=== PATIENT | male | born 1985 | race Caucasian/White ===

== ENCOUNTER 2017-03-19 02:07 | Observation (INO) | payer BC ==
[2017-03-18 17:00] LABS: BASOPHIL# 0.1 X10e3 (0-0.3); BASOPHIL% 0.5 % (0-2.5); EOSINOPHIL# 0.2 X10e3 (0-0.7); EOSINOPHIL% 2.4 % (0.0-7.0); HEMATOCRIT 45.4 % (38.0-50.0); HEMOGLOBIN 15.2 gm/dL (13.0-16.0); LYMPHOCYTE# 1.5 X10e3 (1.0-3.5); LYMPHOCYTE% 14.6 % (17.0-45.0); MEAN CELL VOLUME 94.9 FL (83-96); MEAN CORPUSCULAR HEMOGLOBIN 31.7 PG (28-34); MEAN CORPUSCULAR HGB CONC 33.4 g/dL (30-36); MEAN PLATELET VOLUME 7.9 FL (6.5-11.5); MONOCYTE# 0.6 X10e3 (0-1.0); MONOCYTE% 5.6 % (3.0-12.0); NEUTROPHIL# 7.8 X10e3 (1.5-7.1); NEUTROPHIL% 76.9 % (40-75); PLATELET COUNT 314 X10e3 (140-420); RED BLOOD COUNT 4.79 X10e (3.90-5.60); RED CELL DISTRIBUTION WIDTH 14.1 % (11.0-15.5); WHITE BLOOD COUNT 10.1 X10e3 (4.0-10.5)
[2017-03-18 17:12] LABS: DIFF IND NO
[2017-03-18 17:23] LABS: PARTIAL THROMBOPLASTIN TIME 26.6 SECONDS (23.5-31.3); PROTHROMBIN TIME (PATIENT) 10.7 SECONDS (9.6-11.5)
[2017-03-18 17:43] LABS: ALBUMIN SERUM 4.8 g/dL (3.5-5.0); BILIRUBIN, DIRECT 0.1 mg/dL (0.0-0.2); BILIRUBIN,INDIRECT 1.3 mg/dL (0.0-0.9); BILIRUBIN,TOTAL 1.4 mg/dL (0.2-2.0); BUN/CREATININE RATIO 13.33; CALCIUM SERUM 9.7 mg/dL (8.4-10.2); CREATININE SERUM 0.9 mg/dL (0.6-1.4); GLOM FILT RATE Estimated 111.8 mL/min (>60); PROTEIN TOTAL SERUM 7.6 g/dL (6.0-8.3)
[2017-03-18 19:44] LABS: POC - TROPONIN <0.05 ng/mL (<=0.05)
[2017-03-18 22:53] LABS: LIPASE 19 U/L (22-51); SALICYLATE <4.0 mg/dL
[2017-03-18 22:59] LABS: ACETAMINOPHEN <10 ug/mL; ALCOHOL BLOOD <5 mg/dL ([, 0])
[2017-03-18 23:12] LABS: URINE SOURCE CLEAN CATCH
[2017-03-18 23:20] LABS: URINE APPEARANCE CLEAR; URINE BILIRUBIN NEG (NEG); URINE BLOOD NEG (NEG); URINE COLOR YELLOW; URINE GLUCOSE NEG (NEG); URINE KETONE 2+ (NEG); URINE LEUKOCYTE ESTERASE NEG (NEG); URINE NITRATE NEG (NEG); URINE PH 6.5 (5-8); URINE PROTEIN TRACE (NEG); URINE SPECIFIC GRAVITY 1.026 (1.003-1.035)
[2017-03-18 23:27] LABS: CULTURE INDICATED? NO
[2017-03-18 23:49] LABS: AMPHETAMINE NEG (NEG); BARBITURATES NEG (NEG); BENZODIAZEPINES POS (NEG); COCAINE NEG (NEG); MARIJUANA NEG (NEG); OPIATES NEG (NEG); TRICYCLIC ANTIDEPRESSANTS NEG (NEG); U METHADONE NEG (NEG)
[2017-03-18 23:51] LABS: POC - CKMB 3.2 ng/mL (0.0-7.9); POC - CKMB <1.0 ng/mL (0.0-7.9); POC - TROPONIN <0.05 ng/mL (<=0.05)
--- NOTE | ~2017-03-19 | CT71 ---
[facility] A Service of [facility] & [facility] RADIOLOGY TEXT RESULTS PATIENT: OLIVER ROBERT JR. LOCATION: [facility] [id number] : 83 UNIT #: [id number] AGE: [address]: Sheba Sofia MD SEX: M ORDER DR: [id number] [place] [id number] [facility]. [place], [place] [address] [id number] I MR#: [id number] #: [id number] NAME: OLIVER ROBERT JR. : 1985 SEX: M STUDY DATE/TIME: 03/18/2017 23:21 UNIT: CEDOF ROOM: 06416 STUDY DESCRIPTION: CT Head Wo Contrast Attending Physician: Sheba Sofia M.D. Ordering Physician: Onel Whittaker D.O. Primary Care Physician: Abimbola Ac A.P.R.N. MEDICAL IMAGING REPORT This report is preliminary unless electronic signature is present EXAM CT head, noncontrast, 03/18/2017 HISTORY 31-year-old male in the ED complaining of several-day history of left arm numbness, lip numbness, blurry vision and facial pressure. Chest pain. TECHNIQUE CT examination of the head was performed without IV contrast. This CT exam was performed with one or more of the following radiation dose reduction techniques: Automatic exposure control, adjustment of mA and/or kV according to patient size, and iterative reconstruction. FINDINGS The examination is negative. No evidence of intracranial hemorrhage, mass, mass effect, cerebral edema, hydrocephalus or additional abnormality. The visualized upper paranasal sinuses are clear. IMPRESSION Negative head CT examination. Dictated by... Arnulfo Elam M.D. THIS IS AN ELECTRONICALLY VERIFIED REPORT Arnulfo Elam M.D. at 03/19/2017 6:01 AM NGHIA/mitul TD: 03/19/2017 03:15 JOB #: [id number] MEDICAL IMAGING REPORT [facility] A Service of [facility] RADIOLOGY TEXT RESULTS PATIENT: OLIVER ROBERT JR. LOCATION: [facility] [address]60 : [birth year] UNIT #: [id number] AGE: [address]: Sheba Sofia MD SEX: M ORDER DR: Page 1 of 1 COPY
--- NOTE | ~2017-03-19 | HP ---
Unit #: [id number] #: [id number] Patient: OLIVER ROBERT JR. [id number] [address] [address] [id number] I MR#: [id number] NAME: OLIVER ROBERT JR. ROOM: 578 Age: 31 Sex: M Admission Date: 03/19/2017 : 1985 Attending Physician: Sheba Sofia M.D. Primary Care Physician: Abimbola Ac A.P.R.N. HISTORY AND PHYSICAL CHIEF COMPLAINT Chest discomfort. HISTORY OF PRESENT ILLNESS Mr. Alvarado is a 31-year-old white male who keeps stating that he thinks he was having anxiety. Yesterday, he started experiencing a thumping in his chest. His heart felt like it was beating really hard. He was having numbness and tingling in his left arm. For the last 24-48 hours, he has been having nausea and vomiting. The pounding in his chest had lasted two hours. PAST MEDICAL HISTORY Positive for hypertension and anxiety. PAST SURGICAL HISTORY None. SOCIAL HISTORY The patient denies tobacco abuse, denies alcohol use, denies illicit drug use. FAMILY HISTORY No premature arteriosclerotic heart disease in first degree relative. No stroke. HOME MEDICATIONS 1. Paxil 40 mg daily. 2. Zestoretic 20/12.5 mg daily. ALLERGIES Penicillin and sulfa. REVIEW OF SYSTEMS Negative fever. Negative chills. No productive cough. Positive for nausea, vomiting 24 to 48 hours. No hematuria. No melena. No bright red bleeding per rectum. No difficulty walking. No seizures. PHYSICAL EXAMINATION GENERAL APPEARANCE: Well-developed, well-nourished, 31-year-old white female seen in bed in no acute distress. VITAL SIGNS: Temperature 97.6. Pulse 59. Respirations 17. Blood pressure 118/88. Height 5'9". Weight 74.84 kg. BMI 24. HEENT: Normocephalic, atraumatic. No xanthelasma. Pupils equal, round and reactive to light. Extraocular movements intact. Unit #: [id number] #: [id number] Patient: OLIVER ROBERT JR. NECK: Supple. No jugular venous distention. No elevated CVP. No thyromegaly. LUNGS: Clear to auscultation anteriorly, posteriorly, bilaterally. S1, S2. No S3, S4. No murmurs, rubs, gallops. PMI nondisplaced. ABDOMEN: Soft, nontender, nondistended. Positive bowel sounds. No clubbing, cyanosis or edema. Pulses 2+ bilaterally. SKIN: No rash. No ulcers. No wounds. SPINE: No scoliosis. DIAGNOSTIC STUDIES LABORATORY: Sodium 140, potassium 5.0, chloride 98, CO2 30, BUN 12, creatinine 0.9, glucose 95, total protein 7.6, albumin 4.8, AST 65, ALT 70, alkaline phosphatase 74. CK total 505. MB 5.3%, MV 1.0. Troponin less than 0.03. Acetaminophen less than 10, salicylate less than 4. Alcohol less than 5. Coagulation: PT 10.7, INR 1.0, PTT 26.6. D-dimer 307. Point of care troponin less than 0.05, less than 0.05, less than 0.05. Hemoglobin 15.5, hematocrit 45.4, WBC count 10.1, platelet count 314. Toxicology is positive for benzodiazepines. Urinalysis shows trace protein, 1+ urobilinogen. IMAGING: Normal chest x-ray. Negative head CT. ASSESSMENT AND PLAN 1. Chest discomfort with five negative troponins. A 12-lead EKG shows a normal sinus rhythm, ventricular rate 76. No acute ST-T abnormalities. 2. We will obtain a Cardiolite treadmill stress test, 2-D echocardiogram. 3. Elevated ALT, AST with nausea, vomiting. We will order ultrasound of the gallbladder. Add Zofran. Dictated by Bernice Holt A.P.R.N. for Marc Latham/kayla TD: 03/19/2017 11:36 JOB #: [id number] HISTORY AND PHYSICAL Page 1 of 1 X X HISTORY AND PHYSICAL
--- NOTE | ~2017-03-19 | US67 ---
[facility] A Service of [facility] & [facility] RADIOLOGY TEXT RESULTS PATIENT: OLIVER ORBERT JR. LOCATION: [place] [address] : [birth year] UNIT #: [id number] AGE: [address]: Sheba Sofia MD SEX: M ORDER DR: [id number] [facility] [address] [facility]. [place], [place] [address] [id number] I MR#: [id number] Acc #: [id number] NAME: OLIVER ROBERT JR. : 1985 SEX: M STUDY DATE/TIME: 03/19/2017 12:33 UNIT: [facility] ROOM: [facility] STUDY DESCRIPTION: US Gallbladder Attending Physician: Sheba Sofia M.D. Ordering Physician: Jorge L Vasquez M.D. Primary Care Physician: Abimbola Ac A.P.R.N. MEDICAL IMAGING REPORT This report is preliminary unless electronic signature is present EXAM Gallbladder ultrasound 03/19/2017 HISTORY Right upper quadrant abdominal pain for 1 day. Abnormally elevated liver enzymes today. Nausea and vomiting. FINDINGS There is a 7 mm cyst in the right hepatic lobe. The liver is otherwise homogeneous in echotexture and demonstrates no solid mass lesions. The intra and extrahepatic bile ducts are not dilated. The gallbladder is normal with no evidence of cholelithiasis, wall thickening or pericholecystic fluid. The common duct measures 3 mm. The pancreas and right kidney are normal. IMPRESSION A 7 mm cyst right hepatic lobe. Otherwise negative right upper quadrant ultrasound. Dictated by... Sherman Arteaga M.D. THIS IS AN ELECTRONICALLY VERIFIED REPORT Sherman Arteaga M.D. at 03/20/2017 8:04 AM ERIK/wade TD: 03/19/2017 14:29 JOB #: [id number] MEDICAL IMAGING REPORT Page 1 of 1 COPY
--- NOTE | ~2017-03-19 | DS ---
Unit #: [id number] #: [id number] Patient: OLIVER ROBERT JR. [id number] [address] [address] [id number] I MR#: [id number] NAME: OLIVER ROBERT JR. ROOM: 8 Age: 31 Sex: M Admission Date: 03/19/2017 : 1985 Discharge Date: 03/19/2017 Attending Physician: Sheba Sofia M.D. Primary Care Physician: Verónica PittsPRajinderRMildred DISCHARGE SUMMARY ADMISSION DIAGNOSES 1. Chest discomfort. 2. Nausea and vomiting times 48 hours. 3. History of hypertension. 4. History of anxiety. 5. Etoh abuse. DISCHARGE DIAGNOSES 1. Chest discomfort. 2. Nausea and vomiting times 48 hours. 3. History of hypertension. 4. History of anxiety. 5. Etoh abuse. 6. Elevated liver function tests. HISTORY Mr. Robert is a 31-year-old who was admitted with complaints of heart feeling like it was thumping and nausea and vomiting. He has a history of hypertension. Myocardial infarction was ruled out with negative troponins. Cardiolite treadmill stress test was negative for ischemia. Ultrasound of the gallbladder was negative other than a 7 mm cyst right hepatic lobe. Patient was given Zofran for nausea. He is being discharged home on his home medications. Echocardiogram results still pending at time of this dictation. DISCHARGE MEDICATIONS 1. Paxil 40 mg daily. 2. Zestoretic 20/12.5 daily. 3. He has received a prescription for Zofran 4 mg q.4 h. p.r.n. nausea, three days, no refill, #18 tablets. 4. Protonix 40 mg daily. No refill. FOLLOWUP He will follow up with his primary care physician in one to two weeks. DISCHARGE INSTRUCTIONS He has been counseled to stop alcohol use. Unit #: [id number] #: [id number] Patient: OLIVER ROBERT JR. Dictated by... Jaycee Gramajo.P.RMildred CASTILLO/jacob TD: 03/19/2017 22:54 JOB #: [id number] DISCHARGE SUMMARY Page 1 of 1 X X DISCHARGE SUMMARY
--- NOTE | ~2017-03-19 | CR72 ---
[facility] A Service of [facility] RADIOLOGY TEXT RESULTS PATIENT: OLIVER ROBERT JR. LOCATION: [place] [address] : [birth year] UNIT #: [id number] AGE: [address]: Sheba Sofia MD SEX: M ORDER DR: [id number] [facility] [address] [facility]. [place], [place] [address] [id number] P MR#: [id number] Acc #: [id number] NAME: OLIVER ROBERT : 1985 SEX: M STUDY DATE/TIME: 03/18/2017 16:23 UNIT: [facility] ROOM: STUDY DESCRIPTION: CR Chest Single View Portable Ordering Physician: Ed Doctor [id number] [facility] Primary Care Physician: Abimbola Ac A.P.R.N. MEDICAL IMAGING REPORT This report is preliminary unless electronic signature is present EXAM Portable chest HISTORY SUPPLIED Chest pain, cough and congestion for 3 days. An AP view is obtained. The cardiovascular configuration is normal and the lungs are clear. CONCLUSION Negative portable chest. Dictated by... Eusebio Waldron M.D. THIS IS AN ELECTRONICALLY VERIFIED REPORT Eusebio Waldron M.D. at 03/20/2017 7:19 AM Maximo TD: 03/18/2017 21:27 JOB #: [id number] MEDICAL IMAGING REPORT Page 1 of 1 COPY
--- NOTE | ~2017-03-19 | ST ---
Unit #: [id number] #: [id number] Patient: OLIVER ROBERT JR. [id number] [address] [address] [id number] I MR#: [id number] NAME: OLIVER ROBERT JR. : 1985 SEX: M STUDY DATE/TIME: 03/19/2017 UNIT: [facility] ROOM: 578 STUDY DESCRIPTION: Cardiac stress test. Attending Physician: Sheba Sofia M.D. Primary Care Physician: Abimbola Ac A.P.R.N. CARDIOLOGY REPORT EXAM Cardiac stress test, Lexiscan. PROCEDURE The patient's baseline heart rate was 71 beats per minute, blood pressure 141/96. The patient received Lexiscan infusion as per protocol. Peak infusion heart rate 140, blood pressure 150/100. The patient's baseline EKG showed since rhythm, nonspecific ST and T changes. During Lexiscan infusion recovery no further ST and T changes. The patient received 9.16 mCi of Cardiolite at rest and 36.0 mCi of Cardiolite during stress. Both sets of images were compared. The patient showed fairly uniform uptake of radiotracer. No defect was noted. The patient also had gated SPECT scan done, which showed normal left ventricular size and function. No wall motion abnormality detected. Ejection fraction is 73%. INTERPRETATION 1. EKG part of the test is negative for Lexiscan induced ischemia. 2. Nuclear part of the test is negative for myocardial ischemia. 3. Gated SPECT scan shows normal left ventricular size and function with ejection fraction 73%. Dictated by... Marc Latham/jose f TD: 03/19/2017 15:55 JOB #: [id number] CARDIOLOGY REPORT Page 1 of 1 X Jorge L Vasquez MD CARDIOLOGY REPORT
--- NOTE | ~2017-03-19 | EKG ---
PATIENT: OLIVER ROBERT UNIT #: [id number] Ventricular Rate: 76 BPM Atrial Rate: 76 BPM P-R Interval: 120 ms QRS Duration: 86 ms Q-T Interval: 374 ms QTC Calculation(Bezet): 420 ms P [place]: 62 degrees Calculated R [place]: 84 degrees Calculated T [place]: 61 degrees Diagnosis Line: Normal sinus rhythm Diagnosis Line: Normal ECG Diagnosis Line: No previous ECGs available Diagnosis Line: Confirmed by SHAKIRA TOVAR MD ([id number]) on 03/18/2017 Diagnosis Line: 10:36:38 PM INTERPRETING MD: LA TAFOYA
[2017-03-19 08:27] LABS: MB 5.3 ng/ml
[2017-03-19] MEDS ORDERED: PAXIL40 MG PO (09:41)
[2017-03-19] MEDS ORDERED: ZESTORETIC 20-1 EAC1 PO (09:41)
[2017-03-19] MEDS ORDERED: PROTONIX PO (17:20)
[2017-03-19] MEDS ORDERED: ZOFRAN PO (17:25)
[2017-03-19 18:08] LABS: MB 4.5 ng/ml
== END 2017-03-19 18:42 | disposition home or self-care (01) | DRG 313 ==
LOC: CED 02:07 → CEDOF 02:08 → C5C 08:29
PROVIDERS: Emergency Medicine; Internal Medicine Cardiovascular Disease
DX: R07.9 Chest pain, unspecified (principal); I10 Essential (primary) hypertension; F41.9 Anxiety disorder, unspecified; Z79.899 Other long term (current) drug therapy; Z88.0 Allergy status to penicillin; Z88.2 Allergy status to sulfonamides
CPT/HCPCS: 36415; 70450; 71010; 76705; 78452; 80048; 80076; 80307; 81003; 82550; 82553; 83690; 84484; 85025; 85379; 85610; 85730; 93005; 93017; 93306; 96361; 96374; 96375; 99285; A9500; G0378; G0480; J2405